=== PATIENT | male | born 1950 | race Caucasian/White ===

== ENCOUNTER 2017-05-04 13:15 | Inpatient (IN) | payer OTHER ==
[~2017-05-04] VITALS: Ht 177.8 cm; Wt 83.0 kg
[2017-05-04 13:53] LABS: BASOPHIL % 0.6 % (0-2); PLATELET COUNT 317 x10^3mcL (130-400); RED CELL DISTRIBUTION WIDTH 13.6 % (11.5-14.5)
[2017-05-04 14:11] LABS: CALCIUM 9.2 mg/dL (8.5-10.1); CARBON DIOXIDE 22.3 mmol/L (21-32); CHLORIDE SERUM 96 mmol/L (98-107); CREATININE SERUM 1.1 mg/dL (0.7-1.3); GFR1 > 60 mL/min; SODIUM SERUM 134 mmol/L (136-145)
[2017-05-04 14:14] LABS: POTASSIUM SERUM 5.6 mmol/L (3.5-5.1)
[2017-05-04 14:15] LABS: GLUCOSE SERUM 459 mg/dL (74-106)
[2017-05-04 19:59] LABS: MAGNESIUM 2.3 mg/dL (1.8-2.4); PHOSPHOROUS 4.2 mg/dL (2.5-4.9)
[2017-05-04 20:00] LABS: CHOLESTEROL/HDL RATIO 6.6
[2017-05-04 20:09] VITALS: BP 138/76
[2017-05-04 20:19] LABS: T3 TOTAL 0.52 ng/mL
[2017-05-04 20:26] LABS: FREE T4 1.06 ng/dL (0.76-1.46); FREE THYROXINE INDEX 2.3 ug/dL (1.4-4.5); T4(THYROXINE) 6.3 ug/dL (4.7-13.3)
[2017-05-04 21:12] VITALS: BP 114/62
[2017-05-04 21:50] LABS: microscopic required? NO
[2017-05-04 21:55] LABS: UA SPECIFIC GRAVITY 1.015 (1.005-1.035); urine erythrocyte NEGATIVE (NEGATIVE)
[2017-05-04 22:05] LABS: AMPHETAMINE QUAL UR NONE DETECTED (NEG <=1000)
[2017-05-05] VITALS (7 sets, daily range): BP systolic 96–114; BP diastolic 52–63
[2017-05-05 06:14] LABS: BASOPHIL % 0.6 % (0-2); PLATELET COUNT 263 x10^3mcL (130-400); RED CELL DISTRIBUTION WIDTH 13.7 % (11.5-14.5)
[2017-05-05 06:29] LABS: CALCIUM 8.6 mg/dL (8.5-10.1); CHLORIDE SERUM 99 mmol/L (98-107); CREATININE SERUM 0.9 mg/dL (0.7-1.3); GFR1 > 60 mL/min; GLUCOSE SERUM 231 mg/dL (74-106); MAGNESIUM 2.3 mg/dL (1.8-2.4); POTASSIUM SERUM 4.2 mmol/L (3.5-5.1); SODIUM SERUM 139 mmol/L (136-145)
[2017-05-06 04:34] LABS: BASOPHIL % 0.5 % (0-2); PLATELET COUNT 240 x10^3mcL (130-400); RED CELL DISTRIBUTION WIDTH 13.6 % (11.5-14.5)
[2017-05-06 04:41] LABS: CALCIUM 8.6 mg/dL (8.5-10.1); CARBON DIOXIDE 32.9 mmol/L (21-32); CHLORIDE SERUM 101 mmol/L (98-107); GFR1 > 60 mL/min; GLUCOSE SERUM 183 mg/dL (74-106); MAGNESIUM 1.9 mg/dL (1.8-2.4); PHOSPHOROUS 4.2 mg/dL (2.5-4.9); POTASSIUM SERUM 3.6 mmol/L (3.5-5.1); SODIUM SERUM 141 mmol/L (136-145)
[2017-05-06 05:03] VITALS: BP 95/55
[2017-05-06 09:17] VITALS: BP 114/56
[2017-05-06 12:15] VITALS: BP 111/53
[2017-05-06 17:07] VITALS: BP 117/69
[2017-05-06] MEDS ORDERED: METOPROLOL TART25 M1 PO (17:30)
[2017-05-06] MEDS ORDERED: LIPI20 PO (17:30)
[2017-05-06] MEDS ORDERED: ECO81 PO (17:30)
[2017-05-06] MEDS ORDERED: ZES5 PO (17:30)
[2017-05-06] MEDS ORDERED: METFORMIN HCL1000 MG PO (17:31)
[2017-05-06 18:02] VITALS: BP 117/69
== END 2017-05-06 20:32 | disposition short-term general hospital (02) | DRG 280 ==
LOC: ED 13:15 → DU 19:05
PROVIDERS: Emergency Medicine; ADMIT Family Medicine
DX: I21.4 Non-ST elevation (NSTEMI) myocardial infarction (principal); I50.43 Acute on chronic combined systolic (congestive) and diastolic (congestive) heart failure; J69.0 Pneumonitis due to inhalation of food and vomit; E87.1 Hypo-osmolality and hyponatremia; K21.9 Gastro-esophageal reflux disease without esophagitis; I48.91 Unspecified atrial fibrillation; I08.3 Combined rheumatic disorders of mitral, aortic and tricuspid valves; E11.65 Type 2 diabetes mellitus with hyperglycemia; E11.51 Type 2 diabetes mellitus with diabetic peripheral angiopathy without gangrene; E78.5 Hyperlipidemia, unspecified; F17.210 Nicotine dependence, cigarettes, uncomplicated; Z68.26 Body mass index [BMI] 26.0-26.9, adult
CPT/HCPCS: 82962; 83880; 84439; 94150; J1644; J1815; J1940; J1956; J2543; J3475; J3490; J7030; J7620; Q0092